=== PATIENT | female | born 1945 | race African-American/Black ===

== ENCOUNTER 2022-01-21 10:52 | Emergency (ER) | payer BC ==
[~2022-01-21] VITALS: Ht 162.6 cm; Wt 69.0 kg
[2022-01-21 11:05] VITALS: BP 165/84
[2022-01-21] MEDS ORDERED: MUPI1OIN4 TP (13:43)
[2022-01-21] MEDS ORDERED: TOPUD MT (13:43)
== END 2022-01-21 14:07 | disposition home or self-care (01) ==
LOC: ER 10:52
DX: S60.417A Abrasion of left little finger, initial encounter (principal); I10 Essential (primary) hypertension; E11.9 Type 2 diabetes mellitus without complications; Z88.2 Allergy status to sulfonamides; V43.62XA Car passenger injured in collision with other type car in traffic accident, initial encounter; Y93.89 Activity, other specified; Y92.488 Other paved roadways as the place of occurrence of the external cause
CPT/HCPCS: 73120; 73140; 99284